=== PATIENT | male | born 2000 | race Two or more races ===

== ENCOUNTER 2020-02-13 00:02 | Emergency (ER) | payer SELFPAY ==
[~2020-02-13] VITALS: Ht 170.2 cm; Wt 84.1 kg
[2020-02-13] MEDS ORDERED: MORPHINE SULFATE 10 MG/ML VIAL. IV ONE ×2 (00:15→00:30)
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
[2020-02-13] MEDS ORDERED: DIPH,PERTUSS(ACELL),TET VAC/PF 0.5 ML SYRINGE. VAX IM ONE ×2 (01:55→02:00)
[2020-02-13 02:15] VITALS: BP 151/76
== END 2020-02-13 02:18 | disposition short-term general hospital (02) ==
LOC: ER 00:02 → EEVIPCON 00:02 → ER 02:18
DX: S61.432A Puncture wound without foreign body of left hand, initial encounter (principal); Z20.828 Contact with and (suspected) exposure to other viral communicable diseases; Y29.XXXA Contact with blunt object, undetermined intent, initial encounter; Y93.89 Activity, other specified; Y92.413 State road as the place of occurrence of the external cause; Y99.8 Other external cause status
CPT/HCPCS: 73130; 87426; 90471; 90715; 96365; 96375; 99291; J0690; J2270; 99285